=== PATIENT | female | born 1990 | race American Indian/Alaskan Native ===

== ENCOUNTER 2019-05-09 00:16 | Emergency (ER) | payer SELFPAY ==
[2019-05-09 05:47] LABS: Basophils % (Auto) 0.6 % (0.0-1.8); Eosinophils # (Auto) 0.1 K/mm3 (0.0-0.4); Eosinophils % (Auto) 1.7 % (0.0-4.3); Hematocrit 42.1 % (30.3-42.9); Hemoglobin 13.4 gm/dl (10.1-14.3); Lymphocytes # (Auto) 2.2 K/mm3 (1.2-5.4); Lymphocytes % (Auto) 29.6 % (13.4-35.0); Mean Corpuscular HGB Conc 32 % (30-34); Monocytes # (Auto) 0.4 K/mm3 (0.0-0.8); Monocytes % (Auto) 5.7 % (0.0-7.3); Platelet Count 208 K/mm3 (140-440); Red Cell Distribution Width 15.8 % (13.2-15.2)
--- NOTE | 2019-05-09 05:48 | Emergency Department Report ---
<DAX CHOWDHURY - Last Filed: 05/09/19 07:22> ED General Adult HPI - General Chief complaint: Skin Rash Stated complaint: BURNING SENSATION IN SKIN Time Seen by Provider: 05/09/19 04:08 Source: patient Mode of arrival: Ambulatory Limitations: No Limitations - History of Present Illness Initial comments: pt is a 28-year-old female presents emergency room with complaints of a burning sensation in the lower extremities that began yesterday. She states that she is ambulatory without difficulty. She denies any complete numbness or weakness. She denies leg swelling or calf pain. She states she has a past medical history of type 2 diabetes and states that she was previously on metformin but has not taken in 7 years. She states she also has history of PCOS. She denies any allergies medications. - Related Data Previous Rx's Medication Instructions Recorded Last Taken Type Ibuprofen [Motrin 600 MG tab] 600 mg PO Q8H PRN #21 tablet 05/09/19 Unknown Rx Allergies Allergy/AdvReac Type Severity Reaction Status Date / Time No Known Allergies Allergy Verified 05/09/19 07:02 ED Review of Systems Comment: All other systems reviewed and negative ED Past Medical Hx - Past Medical History Previous Medical History?: Yes Hx Diabetes: Yes - Surgical History Past Surgical History?: No - Social History Smoking Status: Current Every Day Smoker Substance Use Type: Alcohol - Medications Home Medications: Home Medications Medication Instructions Recorded Confirmed Last Taken Type Ibuprofen [Motrin 600 MG tab] 600 mg PO Q8H PRN #21 tablet 05/09/19 Unknown Rx ED Physical Exam - General Limitations: No Limitations General appearance: alert, in no apparent distress - Head Head exam: Present: atraumatic, normocephalic - Eye Eye exam: Present: normal appearance - ENT ENT exam: Present: mucous membranes moist - Extremities Exam Extremities exam: Present: other (no TTP of the BLE, no calf tenderness, no edema of the BLE, sensation is intact ) - Neurological Exam Neurological exam: Present: alert, oriented X3 - Psychiatric Psychiatric exam: Present: normal affect, normal mood - Skin Skin exam: Present: warm, dry ED Medical Decision Making - Lab Data Result diagrams: 05/09/19 05:27 Lab Results 05/09/19 05/09/19 Range/Units 05:27 05:27 WBC 7.3 (4.5-11.0) K/mm3 RBC 6.10 H (3.65-5.03) M/mm3 Hgb 13.4 (10.1-14.3) gm/dl Hct 42.1 (30.3-42.9) % MCV 69 L (79-97) fl MCH 22 L (28-32) pg MCHC 32 (30-34) % RDW 15.8 H (13.2-15.2) % Plt Count 208 (140-440) K/mm3 Lymph % (Auto) 29.6 (13.4-35.0) % [place] % (Auto) 5.7 (0.0-7.3) % Eos % (Auto) 1.7 (0.0-4.3) % Baso % (Auto) 0.6 (0.0-1.8) % Lymph # 2.2 (1.2-5.4) K/mm3 [place] # 0.4 (0.0-0.8) K/mm3 Eos # 0.1 (0.0-0.4) K/mm3 Baso # 0.0 (0.0-0.1) K/mm3 Seg Neutrophils % 62.4 (40.0-70.0) % Seg Neutrophils # 4.5 (1.8-7.7) K/mm3 Total Bilirubin 0.30 (0.1-1.2) mg/dL Direct Bilirubin < 0.2 (0-0.2) mg/dL Indirect Bilirubin 0.1 mg/dL AST 19 (5-40) units/L ALT 17 (7-56) units/L Alkaline Phosphatase 127 (35-129) units/L Total Creatine Kinase 244 H (30-135) units/L Total Protein 8.1 (6.3-8.2) g/dL Albumin 4.3 (3.9-5) g/dL Albumin/Globulin Ratio 1.1 % - Medical Decision Making s/o Rico Dejesus PA-C pending BMP ED Disposition Clinical Impression: Neuropathy Disposition: DC-01 TO HOME OR SELFCARE Condition: Stable Instructions: Paresthesia (ED) Prescriptions: Ibuprofen [Motrin 600 MG tab] 600 mg PO Q8H PRN #21 tablet PRN Reason: Pain Referrals: PRIMARY CARE, [Primary Care Provider] - 3-5 Days <RICO DEJESUS - Last Filed: 05/09/19 08:38> ED Review of Systems ROS: Stated complaint: BURNING SENSATION IN SKIN Other details as noted in HPI ED Course Vital Signs 05/09/19 05/09/19 00:27 08:06 Temperature 98.2 F 98.3 F Pulse Rate 102 H 95 H Respiratory 20 Rate Blood Pressure 130/100 Blood Pressure 118/63 [Right] O2 Sat by Pulse 99 99 Oximetry ED Medical Decision Making - Lab Data Result diagrams: 05/09/19 05:27 05/09/19 07:04 Lab Results 05/09/19 05/09/19 05/09/19 Range/Units 05:27 05:27 07:04 WBC 7.3 (4.5-11.0) K/mm3 RBC 6.10 H (3.65-5.03) M/mm3 Hgb 13.4 (10.1-14.3) gm/dl Hct 42.1 (30.3-42.9) % MCV 69 L (79-97) fl MCH 22 L (28-32) pg MCHC 32 (30-34) % RDW 15.8 H (13.2-15.2) % Plt Count 208 (140-440) K/mm3 Lymph % (Auto) 29.6 (13.4-35.0) % [place] % (Auto) 5.7 (0.0-7.3) % Eos % (Auto) 1.7 (0.0-4.3) % Baso % (Auto) 0.6 (0.0-1.8) % Lymph # 2.2 (1.2-5.4) K/mm3 [place] # 0.4 (0.0-0.8) K/mm3 Eos # 0.1 (0.0-0.4) K/mm3 Baso # 0.0 (0.0-0.1) K/mm3 Seg Neutrophils % 62.4 (40.0-70.0) % Seg Neutrophils # 4.5 (1.8-7.7) K/mm3 Sodium 139 (137-145) mmol/L Potassium 4.1 (3.6-5.0) mmol/L Chloride 101.2 (98-107) mmol/L Carbon Dioxide 21 L (22-30) mmol/L Anion Gap 21 mmol/L BUN 11 (7-17) mg/dL Creatinine 0.7 (0.7-1.2) mg/dL Estimated GFR > 60 ml/min BUN/Creatinine Ratio 16 % Glucose 94 (65-100) mg/dL Calcium 9.5 (8.4-10.2) mg/dL Total Bilirubin 0.30 (0.1-1.2) mg/dL Direct Bilirubin < 0.2 (0-0.2) mg/dL Indirect Bilirubin 0.1 mg/dL AST 19 (5-40) units/L ALT 17 (7-56) units/L Alkaline Phosphatase 127 (35-129) units/L Total Creatine Kinase 244 H (30-135) units/L Total Protein 8.1 (6.3-8.2) g/dL Albumin 4.3 (3.9-5) g/dL Albumin/Globulin Ratio 1.1 % - Medical Decision Making Patient was handed off to me by Dax Chowdhury PA-C, pending glucose results from BMP; states symptoms are likely due to neuropathy and to discharge patient home with treatment for this is glucose results normal. Glucose = 94. Vitals are normal. Patient is neurologically intact with normal ambulation. Patient is stable for discharge home. Recommend follow-up with primary care in 3-5 days. Discussed in detail strict return precautions in detail with patient who verbalizes understanding. Critical care attestation.: If time is entered above; I have spent that time in minutes in the direct care of this critically ill patient, excluding procedure time. ED Disposition Is pt being admited?: No
[2019-05-09 05:50] LABS: Mean Corpuscular Volume 69 fl (79-97)
[2019-05-09 06:02] LABS: Alanine Aminotransferase 17 units/L (7-56); Albumin 4.3 g/dL (3.9-5)
[2019-05-09 06:07] LABS: Bilirubin,Direct < 0.2 mg/dL (0-0.2)
[2019-05-09 08:07] VITALS: BP 118/63
[2019-05-09 08:11] LABS: BUN/Creatinine Ratio 16; Blood Urea Nitrogen 11 mg/dL (7-17); Calcium 9.5 mg/dL (8.4-10.2); Hemolysis Index 11
== END 2019-05-09 08:54 | disposition home or self-care (01) ==
LOC: ED 00:16
DX: G62.9 Polyneuropathy, unspecified (principal)
CPT/HCPCS: 36415; 80048; 80076; 82550; 85025